=== PATIENT | male | born 1985 | race Caucasian/White ===

== ENCOUNTER 2019-06-21 08:06 | Emergency (ER) | payer SELFPAY ==
[2019-06-21 08:06] VITALS: BP 109/52; PULSE 108; RESP 20; TEMP 36.6; O2SAT 97
--- NOTE | 2019-06-21 08:26 | ED.GENADULT ---
HPI - General Adult General Chief complaint: Unspecified Stated complaint: ambulance History of Present Illness HPI narrative: Patient presents via EMS after he called because he is homeless and needed a place to stay and EMS brought the patient to the emergency department. Currently the patient has no medical problems no medical complaints, no fever chills no shortness of breath no nausea vomiting no abdominal pain. Here today chest looking for a place to stay, the patient is coherent has a history of methamphetamine use but currently no use of any illicit drugs. Onset (ago): month(s) Related Data Home Medications Medication Instructions Recorded Confirmed No Home Medications 06/21/19 06/21/19 Allergies Allergy/AdvReac Type Severity Reaction Status Date / Time Penicillins Allergy Unknown Unknown Verified 01/02/19 14:00 Review of Systems Review of Systems: All systems reviewed & are unremarkable except as noted in HPI and below PMFSH Past Medical History Medical History Drug abuse Family History Family History Father Hypertension Family history of pancreatic cancer, Onset Age: 63 Social History Social History Smoking status: Light tobacco smoker Alcohol intake: current Substance use type: marijuana Exam Const: General: no acute distress and alert Orientation/consciousness: patient oriented x3 HENMT: Head: normal to inspection Eyes: Conjunctivae: conjunctivae normal Pupils: Equal, round and reactive pupils present Neck: Neck: normal visual inspection Chest: Chest palpation & inspection: normal inspection of the chest Resp: Effort & Inspection: normal respiratory effort Cardio: Rate: regular rate Rhythm: regular rhythm GI: GI Palp: Yes Soft to palpation : Testes: Testes normal Skin: General skin exam: normal color Rashes: no rashes Neuro: General: patient oriented x3 and moves all extremities Extrem: General: normal to inspection Psych: Appearance: grossly normal Mental Status: mental status grossly normal Thought content: Yes Normal thought content present Critical Care Time Critical Care Time Critical Care Time: No Discharge Plan Discharge Clinical Impression: Homeless Patient Disposition: Other Condition: Stable Instructions: Antibiotic Form Prescriptions: No Action No Home Medications RF: 0 Follow-up/Referrals: UNKNOWN,DOCTOR [Primary Care Provider] - Time of Disposition:
--- NOTE | 2019-06-21 08:35 | PC.NURSE ---
pamphlets from [facility] and [facility] given to pt. encouraged to call facility for information regarding attendance. explained to pt that this decision is solely his responsibility to make regarding rehab and behavior. pt voices understanding. pt attempting to call mother, yeyo gaspar, .
--- NOTE | 2019-06-21 08:42 | PC.NURSE ---
sandwich , soda, chips given to pt.
--- NOTE | 2019-06-21 08:48 | PC.NURSE ---
spoke with mother, she has spoken with [facility] at [facility] where pt has been treated previously. [phone], and intake number [phone] or [phone]. these numbers have been given to pt to follow up to get treatment.
--- NOTE | 2019-06-21 08:57 | PCDIET ---
spoke with cousin, des. states he could pick pt up. awaiting arrival.
--- NOTE | 2019-06-21 09:02 | PC.NURSE ---
spoke with des, awaiting arrival for pick of pt.
--- NOTE | 2019-06-21 09:18 | PC.NURSE ---
pt has all belongings out on bed. explained need to pack belongings so he is ready when his ride arrives. items packed. pt then departed facility ambulating.
== END 2019-06-21 08:44 | disposition other institution (70) ==
PROVIDERS: Emergency Provider Emergency Medicine
DX: Z59.0 Homelessness (principal)
CPT/HCPCS: 99281

== ENCOUNTER 2021-07-13 07:02 | Emergency (ER) | payer BC, SELFPAY ==
--- NOTE | ~2021-07-13 | CT_ITS ---
EXAMINATION: CT facial bones w con DATE: 07/13/2021 08:18 INDICATION: Facial cellulitis. TECHNIQUE: Computed tomography (CT) of the facial bones and maxillofacial region was performed with 7 5 mL Omnipaque 350 intravenous contrast. Automated exposure control and iterative reconstruction tech Gongpingjiaque were employed. The dose-length product was 373.70 mGy-cm. COMPARISON: CT maxillofacial 02/11/2014 FINDINGS: There is right face soft tissue swelling. In the right nasolabial region, there is a 10 x 9 x 12 mm low-attenuation mass, consistent with early abscess. There is mucosal thickening in the para nasal sinuses. There is a carious lesion of tooth 5. The root of tooth 5 extends through the buccal c ortex of the alveolar process. There is mild right submandibular and internal jugular chain lymphaden opathy, likely reactive. There is an old blowout fracture of medial wall of left orbit. IMPRESSION: 1. Right facial cellulitis with 10 x 9 x 12 mm nasolabial abscess. 2. Carious lesion involving tooth #5. There are no lucencies around the roots, but the root extends t hrough the buccal cortex of the alveolar process providing a potential route of spread of infection t o the face soft tissue without requiring erosion of bone around the root. 3. Right submandibular and internal jugular chain lymphadenopathy, likely reactive. Reviewed, dictated and finalized at location B. IMPRESSION: 1. Right facial cellulitis with 10 x 9 x 12 mm nasolabial abscess. 2. Carious lesion involving tooth #5. There are no lucencies around the roots, but the root extends through the buccal cortex of the alveolar process providin g a potential route of spread of infection to the face soft tissue without requ iring erosion of bone around the root. 3. Right submandibular and internal jugular chain lymphadenopathy, likely react jesus.
[2021-07-13 07:08] VITALS: BP 168/90; PULSE 98; RESP 18; TEMP 36.7; O2SAT 95
[2021-07-13 07:17] VITALS: RESP 18; O2SAT 95
--- NOTE | 2021-07-13 07:31 | ED.GENADULT ---
HPI - General Adult General Chief complaint: Unspecified Stated complaint: swelling, reddened right face Time Seen by Provider: 07/13/21 07:05 Source: RN notes reviewed History of Present Illness HPI narrative: Patient presents to emergency department from home for right facial redness. He states he had a pimple in his right upper lip approximately 2 days ago he tried to pop he states since that time he had increased redness and swelling in his right upper lip states the area is tender to palpation he denies any dental pain he denies any fevers or chills difficulty swallowing shortness of breath or any other symptoms Related Data Allergies Allergy/AdvReac Type Severity Reaction Status Date / Time Penicillins Allergy Unknown Unknown Verified 07/13/21 07:15 Review of Systems Review of Systems: Gen.: Denies fevers or chills Eyes: Denies eye pain or visual change ENT: See HPI Respiratory: Denies shortness of breath or cough CV: Denies chest pain GI: Denies abdominal pain nausea, emesis Musculoskeletal: Denies back pain or muscle pain Neuro: Denies headache or weakness Skin: Denies rash Except as documented, all other systems reviewed and negative COUNT INCLUDES THE [facility] Past Medical History Medical History (Updated 07/13/21 @ 10:28 by Ray Kennedy DO) Drug abuse Family History Family History Father Hypertension Family history of pancreatic cancer, Onset Age: 63 Social History Social History Smoking status: Light tobacco smoker Alcohol intake: current Substance use type: marijuana Exam Narrative: APPEARANCE: No acute distress, nontoxic, resting in bed EYES: EOMI HEENT: Normocephalic, atraumatic TMs clear bilaterally nares patent or mucosa moist erythema exudate posterior pharynx there is swelling of the right upper lip with erythema that extends to just at the base of the nostril down through the upper lip and laterally it is firm to palpation with no fluctuance there is no drainage there is no dental pain in the corresponding upper teeth in this region airway is patent no erythema exudate posterior pharynx RESPIRATORY: No respiratory distress Clear to auscultation bilaterally with no rhonchi wheezing or rales. CARDIOVASCULAR: Regular rate and rhythm without murmurs rubs or gallops. ABDOMINAL: Soft, nontender MUSCULOSKELETAl: Moves all extremities. No clubbing, cyanosis or edema. NEURO: Awake and alert. Following commands, speech normal, no focal deficits SKIN:: Warm, dry. No rashes lesions or abrasions PSYCHIATRIC: Normal affect/mood, Course Course Emergency Course: Called and discussed with Dr. Cook requested patient started on clindamycin he does recommend attempting drainage of abscess with 18-gauge needle and will follow as outpatient Discussed with patient results of workup and diagnosis. Discussed need for follow-up with primary care, proper use of medication, and reasons to return to the emergency department. Patient understands and agrees to current treatment plan Vital Signs Vital signs: Vital Signs Temperature 98.0 F 07/13/21 07:08 Pulse Rate 98 07/13/21 07:08 Respiratory Rate 18 07/13/21 07:08 Blood Pressure 168/90 H 07/13/21 07:08 Pulse Oximetry 95 07/13/21 07:08 Temperature 97.5 F L 07/13/21 10:07 Pulse Rate 80 07/13/21 10:07 Respiratory Rate 20 07/13/21 10:07 Blood Pressure 130/86 07/13/21 10:07 Pulse Oximetry 98 07/13/21 10:07 Procedures Abscess I/D face: Abcess I&D Additional Comments: Verbal consent was obtained prior to procedure. The abscess was cleaned with Betadine. The abscess was then incised with 18-gauge needle there was return of approximately 0.5 mL of thick purulent drainage. Following a sterile dressing was applied. Patient tolerated the procedure well Medical Decision Making Vital Signs Vital Signs: Vital Signs Temperature 98.
[2021-07-13 07:45] LABS: Basophils Absolute Auto 0.1 K/mm3 (0.0-0.1); Basophils Percent Auto 0.4 % (0.2-1.2); Eosinophils Absolute Auto 0.4 K/mm3 (0-0.3); Hematocrit 41.3 % (42.0-52.0); Hemoglobin 13.8 g/dL (14.0-18.0); Immature Granulocyte Absolute 0.05 K/mm3 (0.00-0.031); Immature Granulocyte Percent A 0.4 % (0-0.5); Lymphocytes Absolute Auto 2.92 K/mm3 (0.9-3.2); Lymphocytes Percent Auto 22.9 % (18.3-44.2); Mean Corpuscular HGB Conc 33.4 g/dl (32-36); Mean Corpuscular Hemoglobin 29.8 pg (26-34); Mean Corpuscular Volume 89.2 fl (80-100); Mean Platelet Volume 9.2 fl (7.4-10.4); Monocytes Absolute Auto 1.1 K/mm3 (0.1-0.6); Monocytes Percent Auto 8.4 % (2.6-8.5); Neutrophils Absolute Auto 8.3 K/mm3 (1.3-6.7); Neutrophils Percent Auto 64.9 % (45.5-73.1); Platelet Count Result 364 k/mm3 (150-375); Red Blood Count 4.63 M/mm3 (4.6-6.20); Red Cell Distribution Width 13.7 % (11.5-14.5); White Blood Count 12.8 K/mm3 (4.5-10.0)
[2021-07-13 07:46] LABS: Anion Gap 8 mmol/L (8-16); Blood Urea Nitrogen 15 mg/dL (9-20); Carbon Dioxide 28 mmol/L (22-30); Chloride 102 mmol/L (98-107); Estimated CRCL calculation 109 ml/min; Estimated Glomerular Filt Rate > 60; Glucose 134 mg/dL (65-110); Sodium 138 mmol/L (137-145)
[2021-07-13] MEDS: CLINDAMYCIN 900 MG/D5W 50 ML 900 MG/50 ML PIGGYBACK 50 MG IVPB (09:14)
[2021-07-13 10:07] VITALS: BP 130/86; PULSE 80; RESP 20; TEMP 36.4; O2SAT 98
== END 2021-07-13 10:41 | disposition home or self-care (01) ==
PROVIDERS: Emergency Provider Emergency Medicine
DX: L03.211 Cellulitis of face (principal); L02.01 Cutaneous abscess of face; K02.9 Dental caries, unspecified
CPT/HCPCS: 10060; 36415; 70487; 80048; 85025; 96365; 99284; Q9967

== ENCOUNTER 2023-11-02 11:27 | Emergency (ER) | payer BC, SELFPAY ==
[2023-11-02 11:35] VITALS: BP 144/86; PULSE 62; RESP 16; TEMP 36.4; O2SAT 100
--- NOTE | 2023-11-02 12:23 | ED.GENADULT ---
HPI - General Adult General Chief complaint: Urogenital-Male Stated complaint: std check Time Seen by Provider: 11/02/23 11:30 History of Present Illness HPI narrative: 38-year-old male presenting to the emergency department for evaluation for an STD check. Patient states he began having swelling of his penis last night and began developing painful urination. Patient states that he does have unprotected sex with 2 when but neither of them have reported having an STD. Patient's suspected he has chlamydia. Related Data Allergies Allergy/AdvReac Type Severity Reaction Status Date / Time Penicillins Allergy Unknown Unknown Verified 11/02/23 11:53 Review of Systems Review of Systems: All systems reviewed & are unremarkable except as noted in HPI and below PMFSH Past Medical History Medical History (Updated 11/02/23 @ 14:16 by Chris Carmona MD) Drug abuse Family History Family History Father Hypertension Family history of pancreatic cancer, Onset Age: 63 Social History Social History Smoking status: Light tobacco smoker Alcohol intake: current Substance use type: marijuana Exam Narrative: APPEARANCE: Well appearing, no pain, no distress, well-nourished. HEAD: normocephalic, atraumatic. EYES: PERRLA/EOMI, conjunctivae clear. NOSE: Normal no drainage EARS:TMS clear with good light reflex. THROAT: Pharynx clear, no exudate. NECK: Supple. No adenopathy, no masses. RESPIRATORY: Airway patent, respirations nonlabored. Clear to auscultation bilaterally, no rales, rhonchi, wheezing. CARDIOVASCULAR: Regular rate and rhythm without murmurs rubs or gallops. ABDOMINAL: Soft, nontender, nondistended, normal bowel sounds General exam: Mild edema of the foreskin with no balanitis or paraphimosis, purulent discharge from urethral meatus MUSCULOSKELETAL: Moves all extremities. Strength/ROM intact, No edema, No calf tenderness. NEURO: Alert. Cranial nerves II through XII intact. Grossly intact Course Course Emergency Course: Patient was treated for gonorrhea and chlamydia Vital Signs Vital signs: Vital Signs Temperature 97.6 F 11/02/23 11:35 Pulse Rate 62 11/02/23 11:35 Respiratory Rate 16 11/02/23 11:35 Blood Pressure 144/86 H 11/02/23 11:35 Pulse Oximetry 100 11/02/23 11:35 Oxygen Delivery Room Air 11/02/23 11:35 Temperature 97.7 F 11/02/23 14:25 Pulse Rate 64 11/02/23 14:25 Respiratory Rate 16 11/02/23 14:25 Blood Pressure 140/80 11/02/23 14:25 Pulse Oximetry 100 11/02/23 14:25 Oxygen Delivery Room Air 11/02/23 11:35 Medical Decision Making MDM Narrative Medical decision making narrative: 38-year-old male presents emergency department for evaluation for penile swelling and penile discharge. Patient was positive for gonorrhea. Patient was treated with IM Rocephin and p.o. doxycycline for 14 days. Patient was advised to have have additional STD testing at with [facility] if he had concern for additional STDs. Patient was advised to refrain from sexual activity and till his antibiotics are completed. Differential Diagnosis Differential Diagnosis: UTI, gonorrhea, chlamydia, balanitis, paraphimosis Vital Signs Vital Signs: Vital Signs Temperature 97.6 F 11/02/23 11:35 Pulse Rate 62 11/02/23 11:35 Respiratory Rate 16 11/02/23 11:35 Blood Pressure 144/86 H 11/02/23 11:35 Pulse Oximetry 100 11/02/23 11:35 Oxygen Delivery Room Air 11/02/23 11:35 Temperature 97.7 F 11/02/23 14:25 Pulse Rate 64 11/02/23 14:25 Respiratory Rate 16 11/02/23 14:25 Blood Pressure 140/80 11/02/23 14:25 Pulse Oximetry 100 11/02/23 14:25 Oxygen Delivery Room Air 11/02/23 11:35 Lab Data Labs: Lab Results 11/02/23 Range/Units 11:39 Urine Color Yellow (Yellow) Urine Appearance Cloudy H (Clear)
[2023-11-02 12:28] LABS: Add Urine Microscopic? YES; Appearance Urine Cloudy (Clear); Bacteria Urine None Seen /hpf; Bilirubin Urine Negative (Negative); Blood Urine 2+ (Negative); Color Urine Yellow (Yellow); Glucose Urine UA Negative (Negative); Ketones Urine Negative (Negative); Leukocyte Esterase Ur 3+ LEU/UL (Negative); Nitrate Urine Negative (Negative); Non Pathogenic Casts 0-2; Protein Urine Trace mg/dL (Negative); Specific Grav Ur 1.026 (1.001-1.035); Squamous Epithelial Cell Urine None Seen /hpf (Few); Urobilinogen Urine 0.2 mg/dL (<2.0); WBC Urine >100 /hpf (0-3)
[2023-11-02] MEDS: cefTRIAXone 1 GM VIAL 0.5 GM IM (12:35)
[2023-11-02] MEDS: DOXYCYCLINE HYCLATE 100 MG TABLET PO (12:35)
[2023-11-02] MEDS: LIDOCAINE HCL 1% LOCAL INJ 10 ML VIAL (12:36)
[2023-11-02 13:41] LABS: Trichomonas Vag PCR NOT DETECTED (NOT DETECTE)
[2023-11-02 14:06] LABS: Chlamydia trachomatis NOT DETECTED (NOT DETECTE); Neisseria gonorrhoeae PCR DETECTED (NOT DETECTE)
[2023-11-02 14:25] VITALS: BP 140/80; PULSE 64; RESP 16; TEMP 36.5; O2SAT 100
== END 2023-11-02 14:25 | disposition home or self-care (01) ==
PROVIDERS: Physician Assistant; Emergency Provider Emergency Medicine
DX: A54.9 Gonococcal infection, unspecified (principal); F17.200 Nicotine dependence, unspecified, uncomplicated
CPT/HCPCS: 81001; 87086; 87491; 87591; 87661; 96372; 99283; A9270; J0696

== ENCOUNTER 2024-07-25 15:43 | Emergency (ER) | payer BC, SELFPAY ==
[2024-07-25] VITALS (7 sets, daily range): BP systolic 118–158; BP diastolic 85–97; PULSE 72–86; RESP 12–18; TEMP 36.3–36.6; O2SAT 96–100
--- NOTE | ~2024-07-25 | XR_ITS ---
EXAMINATION: XR chest 1V portable DATE: 07/25/2024 16:47 INDICATION: Cough. Possible overdose. TECHNIQUE: frontal view of the chest was obtained.. Repeat radiograph obtained with nipple markers. COMPARISON: Chest radiograph dated 07/25/2018 FINDINGS: Nipple shadow projecting over the left anterior sixth rib. No airspace opacities, pulmonary edema, pl eural effusion or pneumothorax. The cardiomediastinal silhouette is normal. Chronic high-grade acromi oclavicular joint separation with 2 cm cranial subluxation of the lateral head of the clavicle relati ve to the acromion and heterotopic ossification along its caudal margin consistent with secondary chr onic coracoclavicular ligament tear. IMPRESSION: 1. No acute cardiopulmonary disease. Reviewed, dictated and finalized at location B.
[2024-07-25] MEDS: IPRATROPIUM 0.5 MG/ALBUTEROL SULFATE 2.5 MG AMPUL.NEB 3 ML INHALATION (16:37)
--- NOTE | 2024-07-25 16:42 | ED.OVERDOSE ---
HPI - Overdose General Chief Complaint: Overdose Stated Complaint: Fentanyl use - Narcan given Time Seen by Provider: 07/25/24 16:05 History of Present Illness HPI Narrative: Patient is a 39-year-old male who presents ER for drug overdose. Told EMS use fentanyl. No fevers return appointment is sleepy and received Narcan which improved his clinical situation. Police at bedside. Patient reports chronic cough from smoking. No vomiting. No other medical complaints at this time. Mild sinus congestion. Related Data Allergies Allergy/AdvReac Type Severity Reaction Status Date / Time Penicillins Allergy Unknown Unknown Verified 11/02/23 11:53 Review of Systems Review of Systems: All systems reviewed & are unremarkable except as noted in HPI and below Constitutional: Constitutional: Reports no additional constitutional complaints Cardiovascular: Cardiovascular: Reports no additional cardiovascular complaints Respiratory: Respiratory: Reports no additional respiratory complaints Gastrointestinal: Gastrointestinal: Reports no additional gastrointestinal complaints Musculoskeletal: Musculoskeletal: Reports no additional musculoskeletal complaints PMF Past Medical History Medical History (Updated 07/25/24 @ 18:23 by Chinedu Harden MD) Drug abuse Family History Family History Father Hypertension Family history of pancreatic cancer, Onset Age: 63 Social History Social History Smoking status: Light tobacco smoker Alcohol intake: current Substance use type: opiates Exam Narrative: GENERAL: Well-appearing, well-nourished, and in no acute distress. HEAD: Normocephalic, atraumatic. EYES: PERRL and EOMI. ENT: Mucous membranes moist. CHEST: Scattered rhonchi. No respiratory distress. HEART: Regular rate and rhythm. Normal peripheral pulses. ABDOMEN: Soft, nontender, nondistended. EXTREMITIES: Normal range of motion. No edema. SKIN: Warm, dry, no rash. NEURO: Alert and oriented x3. Course Course Emergency Course: Lungs clear to auscultation after nebulizer treatment. Please have released patient from their custody. No hypoxia. Appropriate for discharge home. He will call for a ride. He is drinking soda without issue. Vital Signs Vital signs: Vital Signs Temperature 97.8 F 07/25/24 15:42 Pulse Rate 76 07/25/24 15:42 Respiratory Rate 12 07/25/24 15:42 Blood Pressure 133/97 H 07/25/24 15:42 Pulse Oximetry 100 07/25/24 15:42 Oxygen Delivery Room Air 07/25/24 15:42 Temperature 97.8 F 07/25/24 15:42 Pulse Rate 86 07/25/24 16:45 Respiratory Rate 18 07/25/24 16:45 Blood Pressure 133/97 H 07/25/24 15:42 Pulse Oximetry 100 07/25/24 15:42 Oxygen Delivery Room Air 07/25/24 15:42 MDM - Overdose Imaging Data Radiologist's impression: ITS Impressions Chest X-Ray 07/25/24 16:50 IMPRESSION: 1. No acute cardiopulmonary disease. Discharge Plan Discharge Clinical Impression: Drug abuse Patient Disposition: Home Condition: Stable Instructions: Opioid Safety (ED) Additional Instructions: Return the ER if you have fever 100.4? F, you cannot keep down food water, you have difficulty breathing, or have additional concerns. Patient Language: Kiswahili Prescriptions: New naloxone [Rextovy] 4 mg/actuation spray,non-aerosol 4 mg intranasal Q2M PRN (Reason: opioid overdose) Qty: 2 0RF Rx Instructions: spray 1 dose into ONE nostril; alternate nostrils w each dose until help arrives No Action ibuprofen [IBU] 600 mg tablet 600 mg PO Q6H PRN (Reason: pain) Qty: 20 0RF clindamycin HCl 300 mg capsule 300 mg PO Q6H 10 Days Qty: 40 0RF doxycycline monohydrate 100 mg capsule 100 mg PO BID 14 Days Qty: 28 0RF Follow-up/Referrals: PHYSICIAN,GERIATRIC NURSE PRACTITIONER [Primary Care Provider] - Kathy Gonzales DO [Physician] - 1 Week
--- OUTSIDE RECORDS SUMMARY | 2024-07-25 16:43 | XMS_ITS | Continuity of Care Document ---
Author Organization [facility] Address [address] [place] [address] Phone Care Team Providers Care Asic Engineer Name Role Phone Tony Win MD Unavailable Unavailable Advance Directives Directive Yes / No Effective Date File Name No Information Encounters Encounter Description Practice Location Reason(s) For Visit Diagnoses Date Provider Providers Copied on Encounter [facility], [address] [place], [place], [id number], [place] tel:[phone] [facility] No Information Quirino Jimenez. [address] [facility] [place], [place], [id number], [place]. tel:[phone] Family History Family Member Type Diagnosis Age At Onset No Information Payers Payer name Insurance type Covered libertarian ID Authoriza tion(s) No Information Social History Type Description Quantity Date Captured Comments Sex Male Smoking Status No Information Chief Complaint And Reason For Visit No Information Plan Of Treatment Date Type Action Status No Information History Of Present Illness Encounter Date Complaint History Of Prese nt Illness No Information Instructions Date Instruction Additional Infor mation No Information Assessments Type Assessment Date No Information
== END 2024-07-25 19:13 | disposition home or self-care (01) ==
PROVIDERS: Emergency Provider Emergency Medicine
DX: T40.411A Poisoning by fentanyl or fentanyl analogs, accidental (unintentional), initial encounter (principal); F17.200 Nicotine dependence, unspecified, uncomplicated
CPT/HCPCS: 71045; 94640; 99283